=== PATIENT | female | born 1980 | race Caucasian/White ===

== ENCOUNTER → 2023-09-25 15:18 | Outpatient (CLI) | payer OTHER, SELFPAY ==
--- NOTE | 2023-09-25 | DI.MRI.S_ITS ---
BREAST MRI OF BOTH BREASTS: 09/25/2023 CLINICAL: Family History of Breast Cancer. PROCEDURE: MR BREAST BI WO/W CON INDICATIONS: Family history of breast cancer TECHNIQUE: The patient was placed prone in a dedicated breast imaging coil. Precontrast axial STIR and 3D FLASH without fat saturation sequences were obtained. Both before and after bolus injection of contrast, sequential 1-minute axial 3D FLASH with fat saturation sequences for 3 time points, with subtraction images and maximum intensity projections (MIP's) generated. Delayed sagittal FLASH images with fat saturation were also obtained. Computer-aided detection, including computer algorithm analysis of MRI image data for lesion detection and characterization, pharmacokinetic analysis, with further physician review for interpretation, was performed. COMPARISON: [facility], , MM SCREENING MAMMO BI, 08/13/2023, 15:47. FINDINGS: Image quality: Excellent. There is moderate background parenchymal enhancement. Right breast: There is a STIR hyperintense, T1 hypointense enhancing mass within the right breast at 7 o'clock a posterior depth which measures 0.7 x 0.4 x 0.5 cm (series 6/image 39 and series 17/image 55). There is a 0.4 x 1.2 x 0.8 cm region of non masslike enhancement within the right breast, central to the nipple at a posterior depth (series 11/image 63 and series 17/image 63). No other suspicious foci of enhancement or mass lesions. Left breast: No suspicious enhancement or mass lesions. Miscellaneous: No axillary adenopathy or intramammary adenopathy. Limited visualization of the heart, lungs, upper abdomen and mediastinum are unremarkable. IMPRESSION: INCOMPLETE: NEEDS ADDITIONAL IMAGING EVALUATION 1. Enhancing mass in the right breast at 7 o'clock which may represent a fibroadenoma; however is indeterminate. Second-look ultrasound is recommended. 2. Region of non masslike enhancement within the posterior aspect of the right breast central to the nipple. Although this may represent background parenchymal enhancement, further characterization with second-look ultrasound is recommended. Electronically Signed By: Clau lugo/:09/25/2023 16:36:53 letter sent: Additional Imaging Needed ACR BI-RADS Category 0: Incomplete [id number]
== END ==
LOC: MRI 15:20
PROVIDERS: PCP Nurse Practitioner; Referring Provider Nurse Practitioner; Visit Provider Nurse Practitioner
DX: Z12.39 Encounter for other screening for malignant neoplasm of breast (principal); Z80.3 Family history of malignant neoplasm of breast; N63.13 Unspecified lump in the right breast, lower outer quadrant; N64.9 Disorder of breast, unspecified
CPT/HCPCS: 77049; A9579

== ENCOUNTER → 2023-10-11 14:42 | Outpatient (CLI) | payer OTHER, SELFPAY ==
--- NOTE | 2023-10-11 14:43 | DI.US.S_ITS ---
LIMITED ULTRASOUND OF RIGHT BREAST: 10/11/2023 CLINICAL: Abnormal MRI. Comparison is made to exams dated: 09/25/2023 breast MRI - [facility], 08/13/2023 mammogram, and 07/25/2022 mammogram - [facility]. Color flow and real-time ultrasound of the right breast 7 o'clock region were performed. There is a 0.8 cm x 1 cm x 0.4 cm oval mass with a circumscribed margin in the right breast at 7 o'clock, 9 cm from the nipple. This oval mass is hypoechoic. This correlates with the mass seen on recent breast MRI. No sonographic abnormality in the area of probable background parenchymal enhancement described on recent breast MRI. IMPRESSION: PROBABLY BENIGN Right breast 1.0 cm oval circumscribed mass at 7 o'clock likely corresponding to mass seen on recent breast MRI. Finding may represent a fibroadenoma and is probably benign. Recommend follow-up ultrasound in 6 months. Findings and recommendations were conveyed to the patient during today's evaluation. This exam was interpreted at Station ID: [id number]. Electronically Signed By: Chely Lara M.D., PH.D eb/:10/11/2023 15:57:55 letter sent: Followup Recommended Ultrasound BI-RADS: 3 Probably benign
== END ==
LOC: US 14:42
PROVIDERS: PCP Nurse Practitioner; Referring Provider Nurse Practitioner; Visit Provider Nurse Practitioner
DX: R92.8 Other abnormal and inconclusive findings on diagnostic imaging of breast (principal); N63.13 Unspecified lump in the right breast, lower outer quadrant
CPT/HCPCS: 76642

== ENCOUNTER → 2024-04-28 14:49 | Outpatient (CLI) | payer OTHER, SELFPAY ==
--- NOTE | 2024-04-28 14:49 | DI.US.S_ITS ---
LIMITED ULTRASOUND OF RIGHT BREAST: 04/28/2024 CLINICAL: 6 month follow-up of mass. Comparison is made to exams dated: 10/11/2023 ultrasound, 09/25/2023 breast MRI - [facility], and 08/13/2023 mammogram - [facility]. Color flow and real-time ultrasound of the right breast 7 o'clock region were performed. Gross scale images of the real-time examination were reviewed. There is a 0.7 cm x 0.6 cm x 0.4 cm oval mass with a circumscribed margin in the right breast at 7 o'clock posterior depth 9 cm from the nipple. This oval mass is hypoechoic. This abnormality is decreased in size and correlates with breast MRI findings. Color flow imaging demonstrates that there is no vascularity present. IMPRESSION: PROBABLY BENIGN The 0.7 cm mass in the right breast resembles a fibroadenoma and is probably benign. A follow-up ultrasound in 6 months is recommended to demonstrate stability. Patient will be due for mammogram at that time. Exam findings were conveyed to the patient. This exam was interpreted at Station ID: [id number]. Electronically Signed By: Caleb Lockwood M.D. slc/:04/28/2024 15:26:38 letter sent: Followup Recommended ACR BI-RADS Category 3: Probably Benign
== END ==
PROVIDERS: PCP Nurse Practitioner; Referring Provider Nurse Practitioner; Visit Provider Nurse Practitioner
DX: R92.8 Other abnormal and inconclusive findings on diagnostic imaging of breast (principal); N63.13 Unspecified lump in the right breast, lower outer quadrant
CPT/HCPCS: 76642

== ENCOUNTER → 2024-12-15 13:36 | Outpatient (CLI) | payer OTHER, SELFPAY ==
--- NOTE | 2024-12-15 13:42 | DI.MG.S_ITS ---
MM diagnostic mammo BI, US breast RT limited: 12/15/2024 BI-RADS: 4 CLINICAL: 44-year old female for bilateral diagnostic mammogram and right diagnostic breast ultrasound that is a follow-up to ultrasound, right on 04/28/2024. Jesuser-Culianneck lifetime risk of 23.2%. Current reported family history of breast cancer: mother. The patient reports testing negative for BRCA gene mutation. PRIOR EXAMS 04/28/2024 (US), 10/11/2023 (US), 09/25/2023 (MRI), 08/13/2023, 08/10/2022, 07/25/2022 OS FACILITY: 08-13-23, 08-10-22, 08-10-22 (US), 07-25-22. MAMMOGRAPHY TECHNIQUE: 2D and 3D (tomosynthesis) digital mammographic views obtained, with additional images as needed for full coverage. Current study was also evaluated with a Computer Aided Detection (CAD) system. ULTRASOUND TECHNIQUE Real-time rider scale and color doppler imaging of the area of clinical interest was performed with image documentation. Right targeted breast ultrasound of the area of clinical interest and the axilla was performed with image documentation. DENSITY D. The breasts are extremely dense, which lowers the sensitivity of mammography. MAMMOGRAPHY FINDINGS Bilateral: There are no suspicious calcifications, mass, asymmetry, architectural distortion or other suspicious findings. ULTRASOUND FINDINGS Right: Lower Outer at 7:00, 9 cm from nipple, measuring 1.2 x 0.34 x 0.93 cm: No abnormal lymph nodes are seen in the axilla. There is a hypoechoic mass. The mass has increased in size. IMPRESSION: Right (Mass): Lower Outer at 7:00, 9 cm from nipple, measuring 1.2 x 0.34 x 0.93 cm * Suspicious findings with likelihood of malignancy. RECOMMENDATIONS Right: Lower Outer at 7:00, 9 cm from nipple * Ultrasound-guided biopsy for further evaluation. OVERALL ASSESSMENT CATEGORY BI-RADS-4: Suspicious. ELECTRONICALLY SIGNED: Gavin Saxena M.D. on 12/15/2024 at 03:34:04 PM PT Interpreting Station ID: [id number]
== END ==
PROVIDERS: PCP Nurse Practitioner; Referring Provider Nurse Practitioner; Visit Provider Nurse Practitioner
DX: N63.13 Unspecified lump in the right breast, lower outer quadrant (principal); R92.333 Mammographic heterogeneous density, bilateral breasts; Z80.3 Family history of malignant neoplasm of breast
CPT/HCPCS: 76642; 77066; G0279

== ENCOUNTER → 2025-01-04 10:11 | Outpatient (CLI) | payer OTHER, SELFPAY ==
--- NOTE | 2025-01-04 | PATH_ITS ---
[facility] Accession Number: [id number] No. of containers..01 Tissue . 01 Material submitted: . breast - RIGHT BREAST 7:00, 9CMFN . 01 Clinical history: . RIGHT BREAST 7:00 9CMFN MASS . 01 Diagnosis: RIGHT BREAST, 7 O'CLOCK, 9 CM FN: Breast parenchyma with fibrocystic changes, including prominent benign apocrine metaplasia and fibrosis. Negative for atypical hyperplasia, in situ carcinoma, and invasive carcinoma. MRV 01/06/2025 1304 Local . 01 Electronically signed: . Maggi Moon DO, Pathologist NPI- [id number] . 01 Gross description: . Received in formalin with two identifiers and right breast 7 o'clock 9 cm FN, are multiple yellow to suarez soft tissue fragments aggregating to 1.3 x 1.2 x 0.3 cm. Filtered, inked blue, and submitted entirely in A1. . The specimen was removed on 01/04/2025 at 1145. Time in formalin not provided. Cold ischemic time cannot be calculated. Total fixation time is approximately 30 hours. ([id number]) /MRV 01/05/2025 1948 Local . 01 Pathologist provided ICD-10: N63.0 . 01 CPT . 358846 Performed at: [address] [facility] [address], [place], [place] [id number] MD Devon Millan MD Phone: [phone]
--- NOTE | 2025-01-04 10:13 | DI.MG.S_ITS ---
MM diagnostic mammo [id number]: 01/04/2025. BI-RADS: None CLINICAL: 44-year old female for right diagnostic mammogram. Tyrer-Cuzick lifetime risk of 23.2%. Current reported family history of breast cancer: mother. The patient reports testing negative for BRCA gene mutation. The patient had a prior right breast biopsy. PRIOR EXAMS Mammogram(s): 12/15/2024. Breast Ultrasound(s): 12/15/2024. Seven Other Exams on 04/28/2024, 10/11/2023, 09/25/2023, 08/13/2023, 08/10/2022, 07/25/2022. MAMMOGRAPHY TECHNIQUE: 2D and 3D (tomosynthesis) digital mammographic views obtained, with additional images as needed for full coverage. Current study was also evaluated with a Computer Aided Detection (CAD) system. DENSITY Right: D. The breasts are extremely dense, which lowers the sensitivity of mammography. MAMMOGRAPHY FINDINGS Right: Lower Outer at 7:00, 9 cm from nipple: There is a (Tumark(R) Vision) biopsy marker in targeted location. IMPRESSION: Right * Biopsy marker present. OVERALL ASSESSMENT CATEGORY BI-RADS None: This exam requires no BI-RADS. ELECTRONICALLY SIGNED: Rubén Falk M.D. on 01/04/2025 at 08:24:08 PM PT Interpreting Station ID: [id number]
--- NOTE | 2025-01-04 10:16 | DI.US.S_ITS ---
US bx breast perc w vac device: 01/04/2025. Rad-Path Correlation: Concordant Pathology Classification: Benign SEE ADDENDUM AT END OF THIS REPORT SEE UPDATED PATHOLOGY AT END OF THIS REPORT CLINICAL: 44-year old female for right procedure that resulted from diagnostic mammogram on 12/15/2024. Tyrer-Cuzick lifetime risk of 23.2%. Current reported family history of breast cancer: mother. The patient reports testing negative for BRCA gene mutation. The patient had a prior right breast biopsy. CONSENT Risks including but not limited to bleeding and infection, benefits and alternatives were discussed with the patient. The patient agreed to the procedure and signed informed consent. Time out procedure was used. ROUTINE Right: Patient positioned in the supine or supine-oblique position, prepped and draped in the usual manner using sterile technique. TECHNIQUE Right: Lower Outer at 7:00, 9 cm from nipple: Procedure: Ultrasound-guided vacuum-assisted biopsy of a mass with Tumark(R) Vision marker placement. Device: 14-gauge vacuum-assisted biopsy instrument. BD EleVation(TM). Approach: Lateral. Anesthesia: Local anesthesia obtained using 1%-lidocaine. Secondary local anesthesia obtained using 2%-lidocaine with epinephrine. Skin Entry: Incision with #11 blade. Passes: 3. Specimens: 3. Targeting Confirmation: Real-time Observation and Post-Procedure Imaging. Marker Placement: Tumark(R) Vision marker placed in target location. Post-procedure imaging: Post-procedure imaging confirms the marker to be in target location. Rad/Path Correlation: Pending receipt of pathology report. Conclusion: Ultrasound-guided Vacuum-assisted biopsy with post-procedure CC and ML mammographic views with marker placement, Right: Lower Outer at 7:00, 9 cm from nipple POST-PROCEDURE NOTE Patient experienced a vasovagal reaction during post-procedure mammogram and fell, striking head on ground. Patient had brief loss of consciousness, after which she was awake and alert. Patient was transferred to the Emergency Department for further evaluation. COMPLICATIONS: Vasovagal reaction. DISPOSITION Patient transferred to Emergency Department for further evaluation. SUMMARY Right: Lower Outer at 7:00, 9 cm from nipple: Ultrasound-guided vacuum- assisted biopsy of a mass with Tumark(R) Vision marker placement. PATHOLOGY Right: Lower Outer at 7:00, 9 cm from nipple: Radiologist-Pathologist Correlation: Pending receipt of pathology report. SEE UPDATED RECOMMENDATIONS IN ADDENDUM AT END OF THIS REPORT ELECTRONICALLY SIGNED: Rubén Falk M.D. on 01/04/2025 at 08:23:09 PM PT ADDENDA: * ADDENDUM: This addendum is to reflect Radiology-Pathology correlation as follows: RAD-PATH CORRELATION: Concordant. Rad-Path Correlation changed from Pending. ELECTRONICALLY SIGNED: Chely Lara M.D. on 01/08/2025 at 01:18:07 PM. UPDATED PATHOLOGY Right: Lower Outer at 7:00, 9 cm from nipple: Benign Classification: Apocrine Metaplasia, Fibrocystic Changes (FCC), and Fibrosis. Radiologist-Pathologist Correlation: Concordant. UPDATED RECOMMENDATIONS Bilateral * Annual screening mammography. Interpreting Station ID: [id number]
== END ==
LOC: US 10:11
PROVIDERS: PCP Nurse Practitioner; Referring Provider Nurse Practitioner; Visit Provider Nurse Practitioner
DX: N63.0 Unspecified lump in unspecified breast (principal); R92.8 Other abnormal and inconclusive findings on diagnostic imaging of breast; R92.343 Mammographic extreme density, bilateral breasts
CPT/HCPCS: 19083; 77065

== ENCOUNTER 2025-01-04 11:57 | Emergency (ER) | payer OTHER, SELFPAY ==
[2025-01-04 12:22] VITALS: BP 112/77; PULSE 54; RESP 16; TEMP 36.6; O2SAT 99; BMI 27.3
--- NOTE | 2025-01-04 12:32 | DI.RAD.S_ITS ---
PROCEDURE: XR CHEST 1V INDICATIONS: Chest Pain TECHNIQUE: One view of the chest was acquired. COMPARISON: None. FINDINGS: Surgical changes and devices: None. Lungs and pleura: Lungs are clear. No pleural effusions or pneumothorax. Mediastinum: Mediastinal contours appear normal. Heart size is normal. Bones and chest wall: No suspicious bony lesions. Overlying soft tissues appear unremarkable. IMPRESSION: No acute cardiopulmonary pathology. Dictated by: Jose Cantu M.D. on 01/04/2025 at 12:45 Approved by: Jose Cantu M.D. on 01/04/2025 at 12:46
--- NOTE | 2025-01-04 12:46 | EKG_ITS ---
[address] [address] Test Date: 2025-01-04 Pat Name: Carie Farrell Department: [facility] Room: Gender: Female Ward Aide: ENE : 1980 Requested By: Order Number: [id number] Reading MD: Juan Hernandez Measurements Intervals [place] Rate: 52 P: 40 [place]: 172 QRS: -7 QRSD: 92 T: 23 QT: 442 QTc: 411 Interpretive Statements Sinus bradycardia Cannot rule out Anterior infarct , age undetermined Electronically Signed On 01-07-2025 17:09:51 PDT by Juan Hernandez
[2025-01-04 13:08] LABS: Add Manual Diff / Slide Review NO; Basophils Absolute Auto 0 /uL (0-100); Basophils Percent Auto 0.5 % (0-2); Eosinophils Absolute Auto 200 /uL (0-450); Eosinophils Percent Auto 2.3 % (2-4); Hematocrit 38.7 % (36-46); Hemoglobin 13.1 g/dL (12.0-16.0); Lymphocytes Absolute Auto 1800 /uL (1100-4500); Mean Corpuscular Hemoglobin 29.9 PG (26-34); Mean Corpuscular Volume 88.1 fL (80-100); Monocytes Absolute Auto 400 /uL (0-900); Monocytes Percent Auto 5.6 % (3-14); Neutrophils Absolute Auto 5100 /uL (1500-7000); Neutrophils Percent Auto 67.6 % (50-75); Platelet Count 297 X10^3/uL (150-400); Red Blood Cell Count 4.39 X10^6/uL (4.0-5.2); Red Cell Distribution Width 13.5 % (11.6-14.8); White Blood Cell Count 7.5 X10^3/uL (4.5-11.0)
[2025-01-04 13:14] LABS: Prothrombin Time 11.4 SECONDS (9.4-12.5)
[2025-01-04 13:16] LABS: PTT Partial Thromboplastin Tim 32 SECONDS (25.1-36.5)
[2025-01-04 13:21] LABS: Alanine Aminotransferase 16 IU/L (<35); Albumin 4.5 g/dL (3.5-5.0); Albumin Globulin Ratio 1.7 (1.0-2.8); Alkaline Phosphatase 62 U/L (38-126); Aspartate Aminotransferase 28 IU/L (14-36); BUN Creatinine Ratio 21.9 (6-22); Bilirubin Total 0.6 mg/dL (0.2-1.3); Blood Urea Nitrogen 16 mg/dL (7-17); Calcium 9.2 mg/dL (8.4-10.2); Carbon Dioxide 20 mmol/L (22-32); Chloride 104 mmol/L (98-107); Creatine Kinase 58 U/L (30-135); Estimated Glomerular Filt Rate > 60 mL/min (>60); Globulin 2.6 g/dL (1.7-4.1); Glucose 108 mg/dL (70-99); HEMOLYSIS 17 (0-50); Lipase 48 U/L (23-300); Potassium 3.9 mmol/L (3.4-5.1); Sodium 134 mmol/L (137-145); Total Protein 7.1 g/dL (6.3-8.2)
[2025-01-04 13:33] LABS: NT-proBNP (BNP-Adult 18+) 54 pg/mL (<125); Troponin I < 0.012 ng/mL (0.01-0.034)
--- NOTE | 2025-01-04 14:25 | ED.SYNCOPE ---
HPI - Syncope General Chief Complaint: Syncope Stated Complaint: Post biopsy;passed out,fell. Bump on head & nausea Time Seen by Provider: 01/04/25 13:02 Source: patient Mode of arrival: Ambulatory Limitations: no limitations History of Present Illness HPI narrative: Patient is a 44-year-old female with history of recent breast biopsy presenting in the setting of a syncopal episode while at mammogram. Patient was evaluated in the setting of a overhead code blue, at the time of evaluation patient was awake, alert, and baseline mental status. Per report, patient was feeling lightheaded during the mammogram, endorse dizziness and then subsequently lost consciousness, falling back and hitting the back of her head on the floor. Patient does endorse a history of prior vagal episodes in her past. MD complaint: loss of consciousness and collapsed Related Data Home Medications Medication Instructions Recorded Confirmed No Known Home Medications 04/18/21 05/24/22 Allergies Allergy/AdvReac Type Severity Reaction Status Date / Time No Known Drug Allergies Allergy Verified 05/24/22 15:37 Patient History Social History Smoking Status: Never smoker Smoking Status: Never smoker Exam Initial Vital Signs Initial Vital Signs: Vital Signs Temperature 97.9 F 01/04/25 12:22 Pulse Rate 54 L 01/04/25 12:22 Respiratory Rate 16 01/04/25 12:22 Blood Pressure 112/77 01/04/25 12:22 Pulse Oximetry 99 01/04/25 12:22 Oxygen Delivery Method Room Air 01/04/25 12:22 Const General: cooperative, healthy appearing and No ill appearing [facility] Head: normocephalic and hematoma (Posterior scalp hematoma without bogginess or underlying deformity) Eyes General: Yes appearance normal, both eyes and all related structures Neck Neck: normal visual inspection and full ROM Resp Effort & Inspection: normal respiratory effort and no respiratory distress Cardio Rate: bradycardic Rhythm: regular rhythm Neuro General: patient alert and patient awake Speech: speech normal Motor: muscle tone normal throughout Extrem General: full ROM Psych Mental Status: mental status grossly normal Speech and Movement: speech and movement normal Course Orders Ordered: Discontinued Medications Aspirin (Aspirin 81 Mg Chew Tab) 324 mg PO NOW ONE Stop: 01/04/25 12:33 Last Admin: 01/04/25 12:39 Dose: Not Given Documented By: NENA Vital Signs Vital signs: Vital Signs - 8 hr 01/04/25 15:28 01/04/25 15:30 Pulse Rate 65 56 L Respiratory Rate 16 Blood Pressure 124/79 Pulse Oximetry 95 100 MDM - Syncope Differential Diagnosis Differential diagnosis: Likely vasovagal syncope and dehydration Condition is:: Improved Medical Records Attestation: I reviewed the patient's medical records. Lab Data Attestation: I reviewed the patient's lab results. Lab results narrative: Without evidence of anemia, kidney injury, significant electrolyte abnormality 01/04/25 12:55 01/04/25 12:55 Labs: Lab Results 01/04/25 Range/Units 12:55 WBC 7.5 (4.5-11.0) X10^3/uL RBC 4.39 (4.0-5.2) X10^6/uL Hgb 13.1 (12.0-16.0) g/dL Hct 38.7 (36-46) % MCV 88.1 (80-100) fL MCH 29.9 (26-34) PG MCHC 34.0 (30-36) % RDW 13.5 (11.6-14.8) % Plt Count 297 (150-400) X10^3/uL Neut % (Auto) 67.6 (50-75) % Lymph % (Auto) 24.0 L (25-40) % Montgomery % (Auto) 5.6 (3-14) % Eos % (Auto) 2.3 (2-4) % Baso % (Auto) 0.5 (0-2) % Neut # (Auto) 5100 (2635-5452) /uL Lymph # (Auto) 1800 (1161-7461) /uL Montgomery # (Auto) 400 (0-900) /uL Eos # (Auto) 200 (0-450) /uL Baso # (Auto) 0 (0-100) /uL PT 11.4 (9.4-12.5) SECONDS INR 1.0 (0.9-1.3) APTT 32 (25.1-36.5) SECONDS Sodium 134 L (137-145) mmol/L Potassium 3.9 (3.4-5.1) mmol/L Chloride 104 (98-107) mmol/L Carbon Dioxide 20 L (22-32) mmol/L BUN 16 (7-17) mg/dL Creatinine 0.73 (0.52-1.04) mg/dL Estimated GFR > 60 (>60) mL/min BUN/Creatinine Ratio 21.9 (6-22) Glucose 108 H (70-99) mg/dL Calcium 9.2 (8.4-10.2) mg/dL Magnesium 2.0 (1.6-2.3) mg/dL Total Bilirubin 0.6 (0.2-1.3) mg/dL AST 28 (14-36) IU/L ALT 16 (<35) IU/L Alkaline Phosphatase 62 (38-126) U/L Total Creatine Kinase 58 (30-135) U/L Troponin I < 0.012 (0.01-0.034) ng/mL NT-Pro-B Natriuret Pep 54 (<125) pg/mL Total Protein 7.1 (6.3-8.2) g/dL Albumin 4.5 (3.5-5.0) g/dL Globulin 2.6 (1.7-4.1) g/dL Albumin/Globulin Ratio 1.7 (1.0-2.8) Lipase 48 (23-300) U/L ECG Data Attestation: I personally reviewed and interpreted this ECG as follows: Prior ECG tracings: not available for review Interpretation: EKG demonstrating sinus bradycardia at a rate of 52, IN interval 172, without evidence of acute ischemic changes, no prior for comparison, QTC 411 MDM Narrative Medical decision making narrative: History and exam as above. Patient presenting with syncope most consistent with vasovagal syncope in the setting of mammogram. Patient with full loss of consciousness and fall too hard floor with subsequent head strike now with persistent head pain and mild dizziness. Suspect likely concussion following syncopal event. Syncope may also represent underlying pathology such as electrolyte abnormality, arrhythmia, anemia. Without chest pain, shortness of breath, cardiac comorbidities to suggest ACS, no pleuritic pain, tachycardia, hypoxia suggestive of PE. Plan for CBC, CMP, EKG. Per [place] CT head does not require CT imaging at this time. Lab work overall reassuring without acute abnormality. EKG demonstrating sinus rhythm. Patient does endorse recurrent syncopal episodes over the course of her life. Counseled regarding concussion management and brain rest. Similarly discussed follow-up plan and return precautions. Discharged in stable condition. Discharge Plan Departure Patient Disposition: Home Clinical Impression: Vasovagal syncope Concussion Qualifiers: Encounter type: initial encounter Loss of consciousness presence/duration: with LOC of 30 min or less Qualified Code(s): S06.0X1A - Concussion with loss of consciousness of 30 minutes or less, initial encounter Instructions: DI for Concussion, DI for Syncope in Adults (Fainting), DI for Postconcussion Syndrome Activity Restrictions/Additional Instructions: You were seen in the emergency department following your syncopal episode. Evaluation here including examination, lab work, EKG and x-ray were overall reassuring. There is no evidence of an acute process that would require advanced imaging or further workup at this time. We are glad that you are feeling better at this time. We recommend brain rest for the next 24-48 hours in order to minimize potential downstream effect from a concussion. We recommend following up closely with your primary care provider in the next 3-5 days for close re-evaluation and further management. If you develop recurrent syncope, new chest pain, shortness of breath, persistent lightheadedness or dizziness, nausea or vomiting, other symptoms that are concerning to you, please return to the emergency department for further evaluation. Prescriptions: No Action No Known Home Medications Referrals: Yodit Chavez ARNP [Primary Care Provider] - Stand Alone Forms: Patient Portal/API/Survey
[2025-01-04 15:28] VITALS: PULSE 65; O2SAT 95
[2025-01-04 15:30] VITALS: BP 124/79; PULSE 56; RESP 16; O2SAT 100
--- NOTE | 2025-01-04 15:33 | PC.NURSE ---
patient states nausea is better, still has some dizziness if she moves quickly.
== END 2025-01-04 15:54 | disposition home or self-care (01) ==
PROVIDERS: Emergency Provider Student in an Organized Health Care Education/Training Program; PCP Nurse Practitioner
DX: S06.0X1A Concussion with loss of consciousness of 30 minutes or less, initial encounter (principal); R11.0 Nausea; R55 Syncope and collapse
CPT/HCPCS: 19083; 36415; 71045; 77065; 80053; 82550; 83690; 83735; 83880; 84484; 85025; 85610; 85730; 93005; 99283; 99284

== ENCOUNTER 2025-01-08 10:14 | Emergency (ER) | payer OTHER, SELFPAY ==
[2025-01-08 10:46] VITALS: BP 124/86; PULSE 68; RESP 16; TEMP 36.4; O2SAT 100; BMI 27.1
--- NOTE | 2025-01-08 10:50 | DI.CT.S_ITS ---
PROCEDURE: CT HEAD/BRAIN WO CON INDICATIONS: fall t-3, increasing nausea/[place] TECHNIQUE: Noncontrast 4.5 mm thick angled axial sections acquired from the foramen magnum to the vertex, with coronal and sagittal reformats. For radiation dose reduction, the following was used: automated exposure control, adjustment of mA and/or kV according to patient size. COMPARISON: None. FINDINGS: Image quality: Diagnostic. CSF spaces: Basal cisterns are patent. No extra-axial fluid collections. Ventricles are normal in size and shape. Brain: No midline shift. No intracranial mass effect or hemorrhage. Gross- white matter interface is normal. Skull and face: Calvarium and visualized facial bones are intact, without suspicious lesions. Sinuses: Visualized sinuses and mastoids are clear. IMPRESSION: No acute intracranial pathology. No acute skull fracture. Dictated by: Jose Cantu M.D. on 01/08/2025 at 11:17 Approved by: Jose Cantu M.D. on 01/08/2025 at 11:17
[2025-01-08] MEDS: ONDANSETRON 4 MG ODT SL (12:22)
--- NOTE | 2025-01-08 12:38 | ED_ITS ---
<Statement entered by Stewart Gates, DO - 01/08/25 18:54> Dr. Gates cosign statement I was available for consultation during the patient's emergency department visit. This chart is signed by me for administrative purposes only. I do not have direct contact with the patient during this visit. They were seen independently by the [facility]. HPI - Fall General Chief Complaint: Fall Stated Complaint: still having head pain Time Seen by Provider: 01/08/25 11:21 History of Present Illness HPI Narrative: Ms. Farrell is a very pleasant 44-year-old female who was seen in the emergency department on 01/04/2025 after a vasovagal syncope episode during mammogram, diagnosed with concussion, who presents to the emergency department for persistent headache and nausea x4 days. Patient had a syncope workup performed with lab work, EKG, chest x-ray which are all reassuring, [place] CT head negative and reassuring exam so CT imaging was not performed at that time, she was given concussion precautions however patient reports that she is actually had worsening nausea, mild headaches in the morning, brain fog. She is also developed decreased sense of taste and smell. She rested for 2 days but then did try to go back to work on Saturday, which involves working on a computer, which worsened her symptoms. No repeat head trauma, no fevers, chills, neck pain, visual disturbance or severe headache. Describes headache as mild, worse in the morning gets better throughout the day with the nausea and decreased appetite has been quite persistent. She has not been taking any medications. Related Data Previous Rx's ?Medication ?Instructions ?Recorded ondansetron 4 mg disintegrating 4 mg PO Q8H PRN nausea and 01/08/25 tablet vomiting #20 tabs Allergies Allergy/AdvReac Type Severity Reaction Status Date / Time No Known Drug Allergies Allergy Verified 01/08/25 10:47 Review of Systems Review of Systems ROS Unobtainable: All systems reviewed & are unremarkable except as noted in HPI and below Exam Narrative Exam Narrative: GENERAL: 44 year old patient appears stated age. Well-developed patient, in no acute distress. HEAD: Atraumatic. Normocephalic. No palpable skull defects, edema or wounds. EYES: PERRL. Extraocular motions intact. No scleral icterus. No injection or drainage. ENT: Nose without bleeding, purulent drainage. NECK: Trachea midline. Cervical ROM intact. CARDIOVASCULAR: Regular rate and rhythm. RESPIRATORY: ?Nonlabored respirations. ?Speaking in clear, full sentences. ?Clear to auscultation. Breath sounds equal bilaterally. No wheezes, rales, or rhonchi. ? NEURO: AOx3. ?Clear speech. ?Moves all 4 extremities appropriately. No facial asymmetry. Upper and lower extremity strength intact. SITLT face, upper and lower extremities. SKIN: No rash or erythema of visible areas Initial Vital Signs Initial Vital Signs: Vital Signs Temperature 97.6 F 01/08/25 10:46 Pulse Rate 68 01/08/25 10:46 Respiratory Rate 16 01/08/25 10:46 Blood Pressure 124/86 01/08/25 10:46 Pulse Oximetry 100 01/08/25 10:46 Oxygen Delivery Method Room Air 01/08/25 10:46 Course Orders Ordered: ED Orders 01/08/25 10:50 CT head/brain wo con Stat Discontinued Medications Ondansetron HCl (Ondansetron 4 Mg Odt) 4 mg SL NOW ONE Stop: 01/08/25 11:59 Last Admin: 01/08/25 12:22 Dose: 4 mg Documented By: RADHA Vital Signs Vital signs: Vital Signs - 8 hr 01/08/25 10:46 Temperature 97.6 F Pulse Rate 68 Respiratory Rate 16 Blood Pressure 124/86 Pulse Oximetry 100 Oxygen Delivery Method Room Air MDM - Fall Medical Records Attestation: I reviewed the patient's medical records. Imaging Data CT scan - head: Radiologist's Impression: PROCEDURE: CT HEAD/BRAIN WO CON INDICATIONS: fall t-3, increasing nausea/[place] TECHNIQUE: Noncontrast 4.5 mm thick angled axial sections acquired from the foramen magnum to the vertex, with coronal and sagittal reformats. For radiation dose reduction, the following was used: automated exposure control, adjustment of mA and/or kV according to patient size. COMPARISON: None. FINDINGS: Image quality: Diagnostic. CSF spaces: Basal cisterns are patent. No extra-axial fluid collections. Ventricles are normal in size and shape. Brain: No midline shift. No intracranial mass effect or hemorrhage. Gross- white matter interface is normal. Skull and face: Calvarium and visualized facial bones are intact, without suspicious lesions. Sinuses: Visualized sinuses and mastoids are clear. IMPRESSION: No acute intracranial pathology. No acute skull fracture. Dictated by: Jose Cantu M.D. on 01/08/2025 at 11:17 Approved by: Joes Cantu M.D. on 01/08/2025 at 11:17 [facility] Narrative Medical decision making narrative: 44-year-old female who was seen in the emergency department on 01/04/2025 after a vasovagal syncope episode during mammogram, diagnosed with concussion, who presents to the emergency department for persistent headache and nausea x4 days. Differential diagnosis includes but is not limited to persistent concussion syndrome, ICH, hematoma, etc. On exam patient is in no acute distress, nontoxic appearing, vital signs within normal limits, no neurologic deficits. She has been having persistent concussion symptoms after being diagnosed on 01/04/2025 with worsening nausea. No new head trauma. Head CT obtained in triage given patient's worsening symptoms. Head CT reveals no acute intracranial pathology, no acute skull fracture. Patient not having pain at this time but is having nausea, she was treated with Zofran. Recommended rest, decrease mental stimulation, ibuprofen, acetaminophen, ondansetron as needed for symptoms. Advised prompt follow up with PCP, she does have an appointment on Saturday. Discussed strict ED return precautions. Patient verbalized understanding of all information and is agreeable to the plan. She is stable for discharge home. Discharge Plan Departure Patient Disposition: Home Clinical Impression: Concussion Qualifiers: Encounter type: initial encounter Loss of consciousness presence/duration: with LOC of 30 min or less Qualified Code(s): S06.0X1A - Concussion with loss of consciousness of 30 minutes or less, initial encounter Instructions: DI for Concussion Activity Restrictions/Additional Instructions: Dear Ms. Farrell, Thank you for coming to the emergency department. Today you were evaluated for persistent symptoms following hitting her head a few days ago. We obtained a CT scan of your head which shows no acute abnormalities. At this time I suspect her symptoms are still related to your concussion and I would like you to continue resting. You will likely have a headache and some nausea for a few days. Avoiding highly stimulating activities and even TV or computers may be helpful in minimizing your symptoms. Avoid activities that will put you at risk for another head injury for at least a week. You can take tylenol or motrin for headache or the prescription provided for nausea/vomiting. Return for worsening or persistent symptoms. Follow up with your PCP on Saturday as scheduled. Please take Ibuprofen (Motrin/Advil) or Acetaminophen (Tylenol) for pain. These are available over the counter. You may take Ibuprofen 600 mg every 8 hours with food for pain. You may also take Acetaminophen 650 mg every 4-6 hours for pain. Do not exceed 3000 mg of Tylenol a day as this can cause liver damage. Do not drink alcohol with either of these medications. Please follow up with your primary care doctor within the next 2-3 days for ER follow-up. (If you do not have a PCP you can call [phone]. ?to schedule an appointment with an [facility] Primary Care Provider) IF YOU DEVELOP ANY NEW OR WORSENING SYMPTOMS, RETURN TO THE ER! Please read the attached instructions, they highlight more specific treatments and interventions for you at home. Thank you for letting me participate in your care, Lisha Polanco PA-C Prescriptions: New ondansetron 4 mg tablet,disintegrating 4 mg PO Q8H PRN (Reason: nausea and vomiting) Qty: 20 0RF Referrals: Yodit Chavez ARNP [Primary Care Provider, Nursing] Stand Alone Forms: Patient Portal/API, Work Release Note
[2025-01-08 13:27] VITALS: BP 145/75; PULSE 68; RESP 18; TEMP 36.7; O2SAT 100
== END 2025-01-08 13:28 | disposition home or self-care (01) ==
PROVIDERS: Emergency Provider Physician Assistant; PCP Nurse Practitioner
DX: S06.0X1D Concussion with loss of consciousness of 30 minutes or less, subsequent encounter (principal)
CPT/HCPCS: 70450; 99283; 99284